=== PATIENT | male | born 1970 | race Caucasian/White ===

== ENCOUNTER 2018-01-03 12:53 | Day surgery (SDC) | payer OTHER ==
[2018-01-03] MEDS ORDERED: LACTATED RINGERS 1,000 ML IV ONE ×2 (13:30→17:07)
[2018-01-03] MEDS ORDERED: BUPIVACAINE 0.5%-EPI 1:200000 PF 30 ML VIAL ONE ×2 (14:16→15:22)
[2018-01-03] MEDS ORDERED: LIDOCAINE JELLY 2% 5 ML TUBE TOP ONE (14:17)
[2018-01-03] MEDS ORDERED: ROCURONIUM 50 MG/5 ML VIAL IVP ONE (16:30)
[2018-01-03] MEDS ORDERED: DEXAMETHASONE 4 MG/ML VIAL IVP ONE (16:30)
[2018-01-03] MEDS ORDERED: fentaNYL 100 MCG/2 ML VIAL IVP ONE (16:30)
[2018-01-03] MEDS ORDERED: MIDAZOLAM 2 MG/2 ML VIAL IVP ONE (16:30)
[2018-01-03] MEDS ORDERED: KETOROLAC 30 MG/ML VIAL IVP ONE (16:30)
[2018-01-03] MEDS ORDERED: LIDOCAINE-MPF 2% 5 ML VIAL IM ONE (16:30)
[2018-01-03] MEDS ORDERED: NEOSTIGMINE 1 MG/1 ML 10 ML MDV IVP ONE (16:30)
[2018-01-03] MEDS ORDERED: PROPOFOL 200 MG/20 ML VIAL IVP ONE (16:30)
[2018-01-03] MEDS ORDERED: GLYCOPYRROLATE 1 MG/5 ML VIAL IVP ONE (16:30)
[2018-01-03] MEDS ORDERED: ONDANSETRON 4 MG/2 ML VIAL IVP ONE (16:30)
[2018-01-03] MEDS ORDERED: BUPIVACAINE 0.5%-EPI 1:200000 PF 30 ML VIAL SUBQ ONE ×2 (16:51)
[2018-01-03 18:16] VITALS: BP 135/95
--- NOTE | 2018-01-05 14:59 | OPERATIVE REPORT ---
Operative Report - General Procedure Date: 01/03/18 Planned Procedure: Stapled hemorrhoidectomy (PPH) Pre-Op Diagnosis: Prolapsing symptomatic internal hemorrhoids Procedure Performed: Stapled hemorrhoidectomy (PPH) Post Op Diagnosis: Prolapsing symptomatic internal hemorrhoids - Procedure Note Primary Surgeon: Florentin Bazan MD Anesthesia Provider: Liam Brice CRNA Anesthesia Technique: General ET tube IV Fluids (mL): 600 Estimated Blood Loss (mL): 20 Complications: None. - Other Other Information/Narrative: OPERATIVE DESCRIPTION/REPORT: After verbal and written informed consent was obtained detailing the risks of infection, bleeding requiring transfusion with its risks, nerve injury, and , and after I met with the patient confirming the surgery and the site of the surgery, the patient was brought to the operative suite and placed supine on the operating table. Great care was taken to avoid pressure points to prevent pressure necrosis or nerve injury. Monitoring devices were applied along with TEDs and pneumatic compressive stockings (to prevent DVT). The patient received preoperative antibiotics for surgical prophylaxis. [ anesthesiologist] sedated and anethetized the patient for the entire procedure. The patient was then placed prone in the monica-knife position, again taking care to ensure that we prevented pressure point. The patients buttocks were taped apart and the patient was prepped and draped in the usual sterile manner. A "time in" then confirmed that the paitient was identified with 3 identifiers (name, birthdate and medical record number), the history and physical was in the chart, the signed consent confirming the procedure was in the chart, the patient was in the correct position, the aforementioned prophylactic measures were in place or given, we had the correct personnel and equipment to complete the procedure and that anesthesia, surgery and nursing were given an opportunity to express any concerns. With the agreement of everyone in the room, we proceeded with the operation. The anorectum was injected circumferentially with % marcaine. A large external hemorrhoid was excised using serial application of the Harmonic scalpel , as it would not be addressed by the PPH technique. The PPH kit was obtained and opened. The anal retractor and dilator were placed in the patients anus after thoroughly lubricating them with a water-soluble lubricant. The retractor was held in place to the patients buttocks with 2 2-0 Prolene sutures. The dilator was removed and the tapered appliance was inserted. 4 cm was clearly marked on the appliance measuring from the dentate line. The dentate line was clearly protected behind the retractor. A 2-0 Prolene was then used to sew a purse-string at 4 cm from the dentate line using the tapered appliance as a guide and retractor. The purse string was completed through over 360 degrees to ensure that there were no skipped areas. The purse-string was tested by pulling on the two ends of the suture and feeling the purse- string contract against my finger. It was noted to be complete without any missed areas. The anvil was inserted past the purse-string feeling the ``pop as it passed it. The purse-string was then tied tight around the post and the ends of the suture brought up and tied through the orange hole in the anvil. The anvil was then inserted into the stapling device and the stapler was then screwed down tight. Three minutes were allowed to elapse to allow for emptying of the tissues of blood. The stapler was fired and removed from the anus. A complete ``donut was retrieved from around the post of the stapler, and this was sent in to pathology. Digital examination confirmed a circumferential stapling. Visual inspection confirmed hemostasis. A roll of gelfoam and lidocaine jelly was fashioned and inserted into the patients anus. The perianal area was again injected with the remaining % marcaine. At this point a time out was performed that confirmed that all the counts were correct, the procedure that was performed, the blood loss, the IV fluids administered, and the patients condition. Having tolerated the procedure well, the patient was subsequently taken to short stay in good and stable condition.
== END 2018-01-03 12:54 | disposition home or self-care (01) ==
LOC: SDS 12:53
PROVIDERS: ATTEND Surgery
PROC: 06LY0CC Occlusion of Hemorrhoidal Plexus with Extraluminal Device, Open Approach (ICD-10-PCS; principal; 2018-01-03 14:00)
DX: K64.8 Other hemorrhoids (principal); Z87.891 Personal history of nicotine dependence
CPT/HCPCS: 46947; A4649; J3490; J7120; 88304

== ENCOUNTER 2019-04-16 13:28 | Outpatient (CLI) | payer OTHER ==
[2019-04-16 14:27] LABS: ALBUMIN 4.5 g/dL (3.2-5.5); ALBUMIN/GLOBULIN RATIO 1.3 (1.0-2.2); ALKALINE PHOSPHATASE 86 IU/L (42-121); ALT ALANINE AMINOTRANSFERASE 40 IU/L (10-60); AST ASPARTATE AMINOTRANSFERASE 24 IU/L (10-42); BILIRUBIN,TOTAL 0.8 mg/dL (0.2-1.0); BUN - BLOOD UREA NITROGEN 26 mg/dL (6-20); CALCIUM 9.7 mg/dL (8.5-10.3); CARBON DIOXIDE - CO2 32 mmol/L (21-32); CHLORIDE 97 mmol/L (101-111); CHOL/HDL RATIO 6.7 (<5.0); CHOLESTEROL 220 mg/dL; CREATININE 1.1 mg/dL (0.6-1.2); GFR - MDRD 71 (>89); GLUCOSE 98 mg/dL (70-100); HDL CHOLESTEROL 33 mg/dL; LDL CHOLESTEROL,CALCULATED 165 mg/dL; SODIUM 139 mmol/L (135-145); TOTAL PROTEIN 8.1 g/dL (6.7-8.2); VLDL CHOLESTEROL 22 mg/dL
[2019-04-16 15:01] LABS: HB2 TOTAL 15.6 g/dL; HEMOGLOBIN A1C 0.53 g/dL; HEMOGLOBIN A1C % 5.3 % (4.6-6.2)
== END 2019-04-16 13:29 | disposition home or self-care (01) ==
LOC: LAB 13:28
PROVIDERS: ATTEND Internal Medicine
DX: E78.5 Hyperlipidemia, unspecified (principal); R73.01 Impaired fasting glucose
CPT/HCPCS: 36415; 80053; 80061; 83036; 83721

== ENCOUNTER 2024-04-27 13:04 | Outpatient (CLI) | payer MEDICAID ==
[2024-04-27 13:17] LABS: BASOPHILS # (AUTO) 0.1 10^3/uL (0.0-0.1); BASOPHILS % (AUTO) 0.9 %; EOSINOPHILS # (AUTO) 0.5 10^3/uL (0.0-0.7); EOSINOPHILS % (AUTO) 6.5 %; HCT - HEMATOCRIT 41.5 % (42.0-52.0); HGB - HEMOGLOBIN 13.6 g/dL (14.0-18.0); LYMPHOCYTES % (AUTO) 23.9 %; MEAN CORPUSCULAR HEMOGLOBIN 28.6 pg (27.0-31.0); MEAN CORPUSCULAR HGB CONC 32.8 g/dL (32.0-36.0); MEAN CORPUSCULAR VOLUME 87.2 fL (80.0-94.0); MEAN PLATELET VOLUME 10.6 fL (7.4-11.4); MONOCYTES # (AUTO) 0.6 10^3/uL (0.0-1.0); MONOCYTES % (AUTO) 7.2 %; NEUTROPHILS % (AUTO) 61.3 %; PLT - PLATELET COUNT 243 10^3/uL (130-450); RED BLOOD COUNT 4.76 10^6/uL (4.70-6.10); RED CELL DISTRIBUTION WIDTH 12.7 % (12.0-15.0); WHITE BLOOD COUNT 8.2 x10^3/uL (4.8-10.8)
[2024-04-27 13:34] LABS: ESTIMATED AVERAGE GLUCOSE 100 mg/dL (70-100); HEMOGLOBIN A1c% 5.1 % (4.27-6.07)
[2024-04-27 13:48] LABS: ALBUMIN 4.6 g/dL (3.2-5.5); ALBUMIN/GLOBULIN RATIO 1.5 (1.0-2.2); ALKALINE PHOSPHATASE 68 IU/L (42-121); ALT ALANINE AMINOTRANSFERASE 17 IU/L (10-60); AST ASPARTATE AMINOTRANSFERASE 17 IU/L (10-42); BILIRUBIN,TOTAL 0.6 mg/dL (0.2-1.0); BUN - BLOOD UREA NITROGEN 21 mg/dL (6-20); CALCIUM 9.8 mg/dL (8.5-10.3); CARBON DIOXIDE - CO2 34 mmol/L (21-32); CHLORIDE 100 mmol/L (101-111); CHOL/HDL RATIO 6.5 (<5.0); CHOLESTEROL 240 mg/dL; GFR - MDRD 78 (>89); GLUCOSE 101 mg/dL (74-104); HDL CHOLESTEROL 37 mg/dL; LDL CHOLESTEROL,CALCULATED 181 mg/dL; LDL/HDL RATIO 4.9 (<3.6); POTASSIUM 3.3 mmol/L (3.5-4.5); SODIUM 139 mmol/L (135-145); TOTAL PROTEIN 7.6 g/dL (6.4-8.9); TRIGLYCERIDES 112 mg/dL; VLDL CHOLESTEROL 22 mg/dL
[2024-04-27 13:51] LABS: THYROID STIMULATING HORMONE 1.64 uIU/mL (0.34-5.60)
== END 2024-04-27 13:05 | disposition home or self-care (01) ==
LOC: LAB 13:04
PROVIDERS: ATTEND Nurse Practitioner Gerontology
DX: Z00.00 Encounter for general adult medical examination without abnormal findings (principal)
CPT/HCPCS: 36415; 80050; 80061; 83036; 83721; 84153